=== PATIENT | female | born 1945 | race Caucasian/White ===

== ENCOUNTER 2018-11-17 09:11 | Day surgery (SDC) | payer OTHER ==
[~2018-11-17 09:11] MED LIST: ALBU3IS INH; BYSTOLIC; CALCAVITDA PO; Carvedilol12.5 MG PO; DIGO.125 PO; FURO40 PO; LEVSOD88 PO; MULVITA PO; OMEG1CAP30 PO; POTA20PAC PO; Pravachol40 MG PO; Pravastatin Sod40 MG PO; Prinivil10 MG PO; SACC250C PO; THERAPEUTIC-M1 EAC1 PO; TRAZ50 PO; VANC250 PO; VERA180ERB PO; XARELTO15 MG PO
--- NOTE | 2018-11-17 13:06 | NUR ---
PT DISCHARGED FROM RADIOLOGY POST 1230 FOLLOW UP CHEST XRAY.
--- NOTE | 2018-11-17 13:51 | NUR ---
PT VERBALIZES UNDERSTANDING OF D/C INSTRUCTIONS. REINFORCED SEVERAL TIMES BY DR ENNIS AND NOT TO RESTART PRADAXA AND ASA FOR 48 HOURS. PT VERBALIZED UNDERSTANDING.Patient States Post-Procedure ride home has been arranged.
== END 2018-11-17 22:42 | disposition home or self-care (01) ==
LOC: CT 09:11
DX: R91.1 Solitary pulmonary nodule (principal); J44.9 Chronic obstructive pulmonary disease, unspecified; I51.7 Cardiomegaly; I10 Essential (primary) hypertension; I48.0 Paroxysmal atrial fibrillation; E78.5 Hyperlipidemia, unspecified; F17.210 Nicotine dependence, cigarettes, uncomplicated; Z86.711 Personal history of pulmonary embolism; Z79.01 Long term (current) use of anticoagulants; Z79.899 Other long term (current) drug therapy; Z79.82 Long term (current) use of aspirin
CPT/HCPCS: 32405; 71045; 77012; 88305; 88341; 88342

== ENCOUNTER 2020-07-01 15:01 | Inpatient (IN) | payer OTHER, MEDICARE ==
[~2020-07-01] VITALS: Ht 152.4 cm; Wt 50.3 kg
[~2020-07-01 15:01] MED LIST changes: -DIGO.125 PO; +LANOXIN125 MCG PO
[2020-07-01 15:53] LABS: BASOPHILS ABSOLUTE AUTO 0.03 K/mm3 (0.00-0.23); BASOPHILS PERCENT AUTO 1 % (0-2); EOSINOPHILS ABSOLUTE AUTO 0.05 K/mm3 (0.00-0.68); EOSINOPHILS PERCENT AUTO 1 % (0-6); Hematocrit 36.1 % (33.0-51.0); Hemoglobin 10.3 g/dL (11.5-16.0); IMMATURE GRAN ABSOLUTE AUTO 0.01 K/mm3 (0.00-0.10); IMMATURE GRAN PERCENT AUTO 0 % (0-1); LYMPHOCYTES ABSOLUTE AUTO 0.43 K/mm3 (0.84-5.20); LYMPHOCYTES PERCENT AUTO 9 % (21-46); MONOCYTES ABSOLUTE AUTO 0.37 K/mm3 (0.16-1.47); MONOCYTES PERCENT AUTO 7 % (4-13); Mean Corpuscular HGB 26.1 pg (26.0-34.0); Mean Corpuscular HGB Conc 28.5 g/dL (31.5-36.5); Mean Corpuscular Volume 91 fL (80-100); Mean Platelet Volume 11.9 fL (9.1-12.4); NEUTROPHILS ABSOLUTE AUTO 4.16 K/mm3 (1.96-9.15); NEUTROPHILS PERCENT AUTO 82 % (41-73); NRBC ABSOLUTE 0.03 K/mm3 (0.00-0.02); NRBC Auto 0.6 /100 WBC (0.0-0.2); Platelet Count 196 K/mm3 (150-400); Red Blood Cell Count 3.95 M/mm3 (3.80-5.20); White Blood Cell Count 5.05 K/mm3 (4.00-11.30)
[2020-07-01 16:03] LABS: PCO2 Arterial 64.7 mmHg (35-45); PO2 Arterial 146 mmHg (80-100); pH Blood Arterial 7.36 (7.35-7.45)
[2020-07-01 16:12] LABS: Albumin, Blood 3.2 g/dL (3.4-5.0); Albumin/Globulin Ratio 0.9 (0.8-1.8); Bilirubin, Total 0.5 mg/dL (0.1-1.0); Bun/Creatinine Ratio 22.1 (12.0-20.0); Calcium, Blood 7.9 mg/dL (8.5-10.1); Creatinine, Blood 1.04 mg/dL (0.40-1.00); Globulin, Blood 3.5 g/dL (2.2-4.0); Total Protein, Blood 6.7 g/dL (6.4-8.2); Troponin I 0.036 ng/mL (0.000-0.040)
[2020-07-01 16:38] LABS: Influenza A, PCR NEGATIVE (NEGATIVE); Influenza B, PCR NEGATIVE (NEGATIVE); Resp Syncytial Virus, PCR NEGATIVE (NEGATIVE); SARS-Cov-2 (COVID-19) PCR, MMC NEGATIVE (NEGATIVE)
[2020-07-01 20:13] LABS: International Normalized Ratio 1.97; Prothrombin Time Results 20.3 Sec (9.7-11.5)
--- NOTE | 2020-07-01 21:30 | NUR ---
ASSUMPTION OF CARE RECEIVED REPORT FROM ERIS RN. PATIENT ARRIVED TO UNIT NEW ADMISSION FROM ED. 3 PERSON ASSIST TO BED. PATIENT A/O, VITALS STABLE. RT TO ROOM ASSESSING PATIENT. WILL REVIEW ORDERS AND TREAT PRESCRIBED.
--- NOTE | 2020-07-02 00:01 | NUR ---
REASSESSMENT NO ACUTE CHANGES FROM PREVIOUS ASSESSMENT. VITALS STABLE. ATTEMPTED TO PLACE DONALDSON CATHETER FOUR DIFFERENT RN'S ATTEMPTED UNSUCCESSFULLY. PATIENT INCONTINENT OF URINE. TROY MACHINE TOOL DRESSER AWARE OF DIFFICULT CATHETER INSERTION AND NO SUCCESS. PATIENT ATE A WHOLE SANDWICH, TAKING PO LIQUIDS WITH NO DIFFICULTIES. ORIENTED TO CALL LIGHT, PATIENT REPOSITIONED PREVIOUSLY CHARTED CURRENTLY WITH EYES CLOSED AND NO S/S OF DISTRESS.
--- NOTE | 2020-07-02 04:00 | NUR ---
REASSESSMENT NO ACUTE CHANGES FROM INITIAL ASSESSMENT. VITAL CHARTED. PATIENT DENIES NEEDS OR DISCOMFORTS. CALL LIGHT IN REACH.
[2020-07-02 05:53] LABS: BASOPHILS ABSOLUTE AUTO 0.01 K/mm3 (0.00-0.23); BASOPHILS PERCENT AUTO 0 % (0-2); EOSINOPHILS PERCENT AUTO 0 % (0-6); Hematocrit 34.9 % (33.0-51.0); Hemoglobin 9.9 g/dL (11.5-16.0); IMMATURE GRAN ABSOLUTE AUTO 0.02 K/mm3 (0.00-0.10); IMMATURE GRAN PERCENT AUTO 1 % (0-1); LYMPHOCYTES ABSOLUTE AUTO 0.16 K/mm3 (0.84-5.20); LYMPHOCYTES PERCENT AUTO 4 % (21-46); MONOCYTES ABSOLUTE AUTO 0.07 K/mm3 (0.16-1.47); MONOCYTES PERCENT AUTO 2 % (4-13); Mean Corpuscular HGB 25.8 pg (26.0-34.0); Mean Corpuscular HGB Conc 28.4 g/dL (31.5-36.5); Mean Corpuscular Volume 91 fL (80-100); Mean Platelet Volume 12.5 fL (9.1-12.4); NEUTROPHILS ABSOLUTE AUTO 3.94 K/mm3 (1.96-9.15); NEUTROPHILS PERCENT AUTO 94 % (41-73); Platelet Count 168 K/mm3 (150-400); RDW Coefficient Variation 16.2 % (11.7-14.2); RDW Standard Deviation 53.9 fL (35.1-46.3); Red Blood Cell Count 3.84 M/mm3 (3.80-5.20)
--- NOTE | 2020-07-02 05:56 | NUR ---
SHIFT SUMMARY PATIENT ADMITTED PREVIOUSLY CHARTED. 02 TITRATED THROUGH SHIFT, AT 0400 PATIENT ON 3L 03 VIA NC, BY 0415 SATS 88%, INCREASED 02 TO 4L, BY 0430 SATS 87% AND INCREASED 02 TO 5L. AT 0435 SATS CONTINUED TO DECLINE, 7L HI-FLOW VIA NC PLACED. SATS INCREASED TO 96% AND REMAIN ABOVE 95%. PATIENT INCONTINENT OF BOTH URINE AND STOOL. ATTENDS SATURATED WITH EACH CHANGE. PATIENT TURNING SELF FOR COMFORT, VERBAL CUES REMINDERS TO REPOSITION. CALL LIGHT IN REACH.
[2020-07-02 06:33] LABS: Anion Gap 5 mmol/L (6-16); Blood Urea Nitrogen 25 mg/dL (8-24); Bun/Creatinine Ratio 26.1 (12.0-20.0); CO2, Blood 34 mmol/L (21-32); Calcium, Blood 7.9 mg/dL (8.5-10.1); Chloride, Blood 106 mmol/L (98-108); Creatinine, Blood 0.96 mg/dL (0.40-1.00); Glomerular Filtration Rate >60 (60-); Glucose, Blood 122 mg/dL (70-99); Sodium, Blood 145 mmol/L (136-145)
--- NOTE | 2020-07-02 08:20 | NUR ---
ASSUMED CARE / DR JACKSON: REPORT RECEIVED FROM STEFAN Copeland RN. ASSUMED CARE OF THIS PT AT APPROX 0700. ON ASSESSMENT, THE PT IS AWAKE, A&O. SHE IS PLEASANT & COOPERATIVE W/ CARE. LS DIM IN BASES, PT ON 7L HI-FLOW NC W/ O2 SATS > 92%. STS HER "BREATHING IS BETTER" SINCE ADMISSION. MONITOR SHOWS AFLUTTER W/ HR 70-90s, BP STABLE. PT IS TOLERATING PO INTAKE WELL. SHE IS INCONTINENT OF BOWEL W/ HX IBS, ATTENDS IN PLACE. THE PT IS ALSO INCONTINENT OF BLADDER, PER REPORT, DONALDSON PLACEMENT ATTEMPTED x4 ON PRIOR SHIFT. SKIN CONDITION OVERALL FRAGILE, ECCHYMOTIC - SEE ASSESSMENT. THEATER SET PRODUCTION DESIGNER CURRENTLY AT BEDSIDE FOR EXAM. DR JACKSON HAS BEEN AT BEDSIDE THIS AM TO EVAL PT. RADIOLOGY CT TECHNOLOGIST TO BE ORDERED FOR COMMUNITY RESOURCES THE PT LIVES AT ALONE W/ NO FAMILY TO HELP HER & DEPENDS ON THE AID OF HER NEIGHBORS PRN. HE WOULD LIKE THE PT TO HAVE A DONALDSON R/T DIURESIS FOR STRICT I&O. THIS RN HAS EXPLAINED ISSUE W/ DONALDSON PLACEMENT DURING PRIOR SHIFT BUT WILL ATTEMPT DONALDSON PLACEMENT IF PT WILL ALLOW. WILL CONTINUE TO MONITOR & UPDATE NEEDED.
[2020-07-02 09:51] LABS: Source, Urine Catheter
[2020-07-02 09:56] LABS: Appearance, Urine Hazy (Clear); Bilirubin, Urine Neg (Neg); Blood, Urine 4+ (Neg); Color, Urine Yellow (P-Yellow); Glucose Qualitative, Urine Neg (Neg); Ketones, Urine Neg (Neg); Leukocyte Esterase, Urine 3+ (Neg); Nitrite, Urine Pos (Neg); Protein, Urine Neg (Neg); Urobilinogen, Urine NORM (Normal)
--- NOTE | 2020-07-02 10:10 | NUR ---
Spoke with Dr Green and discussed case. Pt appears to have improved since being in the ED. Dr Green reports Pt may benefit from community resources. Spoke with Bedside RN Eva and discussed case. Pt resting in bed upon arrival. Pt denies pain, nausea, and dyspnea at time of visit. Pt does report mild anxiety due to concerns about her cats. She reports plan to call neighboer to check on cats. Pt reports no family or friends for support and does not drive. She reports neighbors will assist with transportation on occasion. Kept visit brief so Pt can make phone calls to neighbors. Pt agreeable for continued Palliative Care visits. Placed Social Service referral for community resources and spoke with Commercial Horticulture Instructor Lana. Plan: F/U for supportive visits and advanced care planning.
[2020-07-02 10:45] LABS: Bacteria Many /hpf; Red Blood Cells, Urine 50-100 /hpf (0-2); Squamous Epithelial Cells Rare /hpf (Few); White Blood Cells, Urine 50-100 /hpf (0-5)
--- NOTE | 2020-07-02 11:42 | NUR ---
echocardiogram complete
--- NOTE | 2020-07-02 14:49 | NUR ---
DR YEUNG: PROVIDER HAS BEEN AT BEDSIDE TO EVAL PT THIS AFTERNOON. ABX ORDERED FOR PT's UTI NOTED ON UA SENT W/ DONALDSON PLACEMENT THIS AM. NO OTHER CHANGES AT THIS TIME.
--- NOTE | 2020-07-02 18:05 | NUR ---
SHIFT SUMMARY: NO ACUTE CHANGES SINCE PRIOR UPDATES. PT REMAINS A&O, PLEASANT & COOPERATIVE W/ CARE. SHE IS CURRENTLY ON 2L NC W/ O2 SATS > 92% ON AVG, DESATS TO 88% W/ EXERTION. MONITOR SHOWS AFLUTTER W/ HR 70-90s, BP STABLE. PT HAS NO GI COMPLAINTS & HAS TOLERATED PO INTAKE WELL THIS SHIFT. DONALDSON PATENT/ DRAINING YELLOW URINE W/ MOD AMNTS OF SEDIMENT PRESENT. SKIN CONDITION OVERALL UNCHANGED, Q2H REPOSITIONING TO MAINTAIN SKIN INTEGRITY. WILL CONTINUE TO MONITOR & REPORT OFF TO ONCOMING RN.
--- NOTE | 2020-07-02 19:23 | NUR ---
TRANSFER TO MEDICAL FLOOR: REPORT HAS BEEN GIVEN TO RN TO ASSUME CARE. PT WILL BE TRANSFERRED TO ROOM 325 VIA BED. CHART & ALL BELONGINGS WILL BE TAKEN UP W/ PT.
--- NOTE | 2020-07-03 04:20 | NUR ---
SHIFT SUMMARY ALERT, ABLE TO MAKE NEEDS KNOWN. COOPERATIVE WITH CARE. ANSWERS QUESTIONS APPROPRIATELY. NO C/O PAIN/DISCOMFORT. APPEARED TO REST MUCH OF THE NIGHT. REMAINS ON HEPARIN IV WITHOUT COMPLICATION. DONALDSON SECURED AND DRAINING TO GRAVITY. FREELY MOVING IN BED. HAS REMAINED ON 5L VIA HI-FLOW NC T/O NIGHT; ATTEMPTED TO WEAN, HOWEVER WOULD DESATURATE AFTER TITRATION. TELE RUNNING AFLUTTER IN THE 80s. BED REMAINS IN LOWEST POSITION; ALARM ON. CALL LIGHT AND BELONGINGS WITHIN REACH. CONTINUE WITH CURRENT PLAN OF CARE. REPORT TO ONCOMING RN.
[2020-07-03 05:27] LABS: BASOPHILS ABSOLUTE AUTO 0.01 K/mm3 (0.00-0.23); BASOPHILS PERCENT AUTO 0 % (0-2); EOSINOPHILS PERCENT AUTO 0 % (0-6); Hematocrit 31.4 % (33.0-51.0); Hemoglobin 9.2 g/dL (11.5-16.0); IMMATURE GRAN ABSOLUTE AUTO 0.11 K/mm3 (0.00-0.10); IMMATURE GRAN PERCENT AUTO 1 % (0-1); LYMPHOCYTES ABSOLUTE AUTO 0.21 K/mm3 (0.84-5.20); LYMPHOCYTES PERCENT AUTO 2 % (21-46); MONOCYTES ABSOLUTE AUTO 0.37 K/mm3 (0.16-1.47); MONOCYTES PERCENT AUTO 3 % (4-13); Mean Corpuscular HGB Conc 29.3 g/dL (31.5-36.5); Mean Corpuscular Volume 89 fL (80-100); Mean Platelet Volume 12.4 fL (9.1-12.4); NEUTROPHILS ABSOLUTE AUTO 11.62 K/mm3 (1.96-9.15); NEUTROPHILS PERCENT AUTO 94 % (41-73); Platelet Count 181 K/mm3 (150-400); RDW Coefficient Variation 16.3 % (11.7-14.2); RDW Standard Deviation 53.1 fL (35.1-46.3); Red Blood Cell Count 3.54 M/mm3 (3.80-5.20); White Blood Cell Count 12.32 K/mm3 (4.00-11.30)
[2020-07-03 06:09] LABS: Anion Gap 4 mmol/L (6-16); Blood Urea Nitrogen 33 mg/dL (8-24); Bun/Creatinine Ratio 31.4 (12.0-20.0); CO2, Blood 36 mmol/L (21-32); Calcium, Blood 8.3 mg/dL (8.5-10.1); Chloride, Blood 102 mmol/L (98-108); Creatinine, Blood 1.05 mg/dL (0.40-1.00); Digoxin (Lanoxin) 0.22 ug/mL (0.80-2.00); Glomerular Filtration Rate 54 (60-); Glucose, Blood 122 mg/dL (70-99); Potassium, Blood 4.3 mmol/L (3.5-5.5); Sodium, Blood 142 mmol/L (136-145)
--- NOTE | 2020-07-03 17:29 | NUR ---
SHIFT SUMMARY PT A&OX3, DOES NOT KNOW DATE. SHE DOES NOT USE THE CALL LIGHT TO MAKE NEEDS KNOWN. UNABLE TO NOTIFY STAFF IF SHE HAD A BM. PT HAS CONFUSION THROUGH OUT SHIFT, USUALLY NOT KNOWNING WHY SHE HAS IV HOOKED UP TO HER, WHAT THE O2 MONITOR AND TELE IS FOR. PT ALSO THOUGHT THE PHONE WAS THE TV REMOTE. SHE WORKED WITH PHYSICAL THERAPHY TODAY AND IS A 1 PERSON SBA TO CHAIR. PT HAS BEEN IN CHAIR FOR THE LAST HOUR AND HAS SET CHAIR ALARM OFF MULTIPLE TIMES, HIGH FALL RISK DUE TO DONALDSON, IV, O2 MONITOR AND NASAL CANAL. PT DENIES P/N/V DURING SHIFT. SHE HAD A FRIEND VIST, HER FRIEND VOICED CONCERNS ABOUT HER BEING MORE FORGETFULL THAN USUAL. PT CURENTLY IN ROOM, IN CHAIR EATING DINNER. CALL LIGHT W/IN REACH.
--- NOTE | 2020-07-04 04:02 | NUR ---
SHIFT SUMMARY ALERT, ABLE TO MAKE NEEDS KNOWN. NOTABLY FORGETFUL AT TIMES. RE-DIRECTS EASILY. UPSET AT BEGINNING OF SHIFT; THINKING SHE MAY HAVE LOST SOME MONEY/DEBIT CARD. REMEMBERED THAT SHE GAVE HER FRIEND WHOM VISTED DURING THE DAY YESTERDAY HER DEBIT CARD TO HAVE HER CAT PUT TO SLEEP TODAY. REMINDED HER THAT IT WAS LATE AND THAT HER FRIEND WAS LIKELY SLEEPING OR GETTING READY TO GO TO SLEEP AND THAT SHE WOULD NEED TO TRY AND CALL HER IN THE MORNING; AGREEABLE. EXITED THE BED DURING THE NIGHT A COUPLE OF TIMES GETTING TANGLED IN LINES. REMAINS ON HEPARIN IV. TELE RUNNING AFIB IN THE 80s. APPEARED TO REST OFF AND ON. DONALDSON INTACT, SECURED AND DRAINING TO GRAVITY. VSS/AFEBRILE. BED REMAINS IN LOWEST POSITION; ALARM ON. CALL LIGHT AND BELONGINGS WITHIN REACH. CONTINUE WITH CURRENT PLAN OF CARE. REPORT TO ONCLEO RN.
[2020-07-04 07:46] LABS: BASOPHILS ABSOLUTE AUTO 0.01 K/mm3 (0.00-0.23); BASOPHILS PERCENT AUTO 0 % (0-2); EOSINOPHILS ABSOLUTE AUTO 0.01 K/mm3 (0.00-0.68); EOSINOPHILS PERCENT AUTO 0 % (0-6); Hemoglobin 9.2 g/dL (11.5-16.0); IMMATURE GRAN ABSOLUTE AUTO 0.06 K/mm3 (0.00-0.10); IMMATURE GRAN PERCENT AUTO 1 % (0-1); LYMPHOCYTES ABSOLUTE AUTO 0.65 K/mm3 (0.84-5.20); LYMPHOCYTES PERCENT AUTO 5 % (21-46); MONOCYTES ABSOLUTE AUTO 0.73 K/mm3 (0.16-1.47); MONOCYTES PERCENT AUTO 6 % (4-13); Mean Corpuscular HGB 26.3 pg (26.0-34.0); Mean Corpuscular HGB Conc 28.8 g/dL (31.5-36.5); Mean Corpuscular Volume 91 fL (80-100); NEUTROPHILS PERCENT AUTO 88 % (41-73); Platelet Count 194 K/mm3 (150-400); RDW Coefficient Variation 16.4 % (11.7-14.2); RDW Standard Deviation 54.5 fL (35.1-46.3); White Blood Cell Count 11.96 K/mm3 (4.00-11.30)
[2020-07-04 07:55] LABS: Creatinine, Blood 1.18 mg/dL (0.40-1.00); Potassium, Blood 4.6 mmol/L (3.5-5.5)
[2020-07-04 13:32] LABS: Lactate Dehydrogenase (Ld),Bld 243 U/L (100-240)
[2020-07-04 13:42] LABS: Alanine Aminotransfer (ALT/SGP 23 U/L (12-78); Albumin, Blood 3.2 g/dL (3.4-5.0); Albumin/Globulin Ratio 0.9 (0.8-1.8); Alk Phos 82 U/L (50-136); Aspartate Aminotrans (AST/SGOT 27 U/L (12-37); Bilirubin, Direct <0.1 mg/dL (0.0-0.3); Bilirubin, Indirect Unable to Calculate mg/dL (0.1-0.7); Bilirubin, Total 0.4 mg/dL (0.1-1.0); Globulin, Blood 3.7 g/dL (2.2-4.0); Total Protein, Blood 6.9 g/dL (6.4-8.2)
--- NOTE | 2020-07-04 17:54 | NUR ---
Shift Summary A/Ox 2 to self and hospital, often forgetful. 2-3L O2 with sats between 88-95. Heparin stopped at [address] Crowley's order for a thoracentesis at 1730 tonight. Heparin will need to be resumed an hour after procedure and pharmacy needs to be notified. Patient edematous in BLE 4+. Up x SBA d/t lines/cords. Continuous biox on. Denies pain, nausea, vomiting, diarrhea, shortness of breath. Up in chair for all meals. Bed and chair alarm on for safety. Does not use call light appropriately. WCTM and report to oncoming RN.
[2020-07-04 18:28] LABS: Automated BF WBC Count 0.251 K/mm3 (0-999); Body Fluid WBC Count 251 /mm3 (0-999)
[2020-07-04 18:43] LABS: Lactate Dehydrogenase, Body Fl 79 U/L
[2020-07-04 18:53] LABS: RBC Count, Body Fluid 160 /mm3 (0-0)
[2020-07-04 19:24] LABS: Appearance, Body Fluid Clear (Clear); Color, Body Fluid L Yellow (None-Yellow); Total Cell Count, Body Fluid 100
--- NOTE | 2020-07-05 04:13 | NUR ---
SHIFT SUMMARY VERY CONFUSED T/O SHIFT, NOT EASILY REDIRECTED, PULLED OFF NC REPEATEDLY, SET OFF BED ALARM ATTEMPTING TO VOID MANY X'S (HAS A DONALDSON), CALLING OUT INTO HALLWAY "LUBNA WHERE ARE YOU", FINALLY SLEEPING AT 0400, BED ALARM ACTIVE, CALL LIGHT IN REACH, WILL CONT TO MONITOR UNTIL REPORT GIVEN TO DAY RN.
[2020-07-05 10:45] LABS: BASOPHILS ABSOLUTE AUTO 0.01 K/mm3 (0.00-0.23); BASOPHILS PERCENT AUTO 0 % (0-2); EOSINOPHILS ABSOLUTE AUTO 0.05 K/mm3 (0.00-0.68); EOSINOPHILS PERCENT AUTO 1 % (0-6); Hematocrit 32.3 % (33.0-51.0); Hemoglobin 9.5 g/dL (11.5-16.0); IMMATURE GRAN ABSOLUTE AUTO 0.04 K/mm3 (0.00-0.10); IMMATURE GRAN PERCENT AUTO 1 % (0-1); LYMPHOCYTES ABSOLUTE AUTO 0.55 K/mm3 (0.84-5.20); LYMPHOCYTES PERCENT AUTO 6 % (21-46); MONOCYTES ABSOLUTE AUTO 0.69 K/mm3 (0.16-1.47); MONOCYTES PERCENT AUTO 8 % (4-13); Mean Corpuscular HGB 26.3 pg (26.0-34.0); Mean Corpuscular HGB Conc 29.4 g/dL (31.5-36.5); Mean Corpuscular Volume 90 fL (80-100); Mean Platelet Volume 11.8 fL (9.1-12.4); NEUTROPHILS ABSOLUTE AUTO 7.37 K/mm3 (1.96-9.15); NEUTROPHILS PERCENT AUTO 85 % (41-73); Platelet Count 184 K/mm3 (150-400); RDW Coefficient Variation 16.4 % (11.7-14.2); RDW Standard Deviation 53.7 fL (35.1-46.3); Red Blood Cell Count 3.61 M/mm3 (3.80-5.20); White Blood Cell Count 8.71 K/mm3 (4.00-11.30)
[2020-07-05 11:05] LABS: Anion Gap 1 mmol/L (6-16); Blood Urea Nitrogen 37 mg/dL (8-24); Bun/Creatinine Ratio 39.2 (12.0-20.0); CO2, Blood 42 mmol/L (21-32); Calcium, Blood 8.6 mg/dL (8.5-10.1); Chloride, Blood 96 mmol/L (98-108); Creatinine, Blood 0.94 mg/dL (0.40-1.00); Glomerular Filtration Rate >60 (60-); Glucose, Blood 106 mg/dL (70-99); Potassium, Blood 4.2 mmol/L (3.5-5.5); Sodium, Blood 139 mmol/L (136-145)
--- NOTE | 2020-07-05 17:07 | NUR ---
Shift Summary A/O x 2. Pleasant and cooperative with care. Tele: Afib 70's. Patient had chest physiotherapy x 2 this shift. Will need chest physiotherapy q6h as patient tolerates per Dr. Dacosta. Heparin continues to infuse @ 17.1 mL/hr (14.5 u/kg/hr). Nonproductive cough noted. Encourage use of flutter valve therapy. No acute changes, WCTM.
--- NOTE | 2020-07-06 05:24 | NUR ---
SHIFT SUMMARY PT FELL ASLEEP EARLY AND SLEPT WELL THIS SHIFT, REFUSED TO WAKE FOR PM MEDS, THEN WOKE BRIEFLY @ MIDNIGHT SETTING OFF BED ALARM TANGLED IN LINES AND AGREED TO TAKE MEDS AND ALLOW STAFF TO ASSIST W/POSITIONING, QUICKLY FELL BACK TO SLEEP AND SLEPT T/O THE NIGHT, SLEEPING AT THIS TIME, CALL LIGHT IN REACH, WILL CONT TO MONITOR UNTIL REPORT GIVEN TO DAY RN.
[2020-07-06 06:04] LABS: BASOPHILS PERCENT AUTO 0 % (0-2); EOSINOPHILS PERCENT AUTO 0 % (0-6); Hematocrit 30.9 % (33.0-51.0); Hemoglobin 9.2 g/dL (11.5-16.0); IMMATURE GRAN ABSOLUTE AUTO 0.03 K/mm3 (0.00-0.10); IMMATURE GRAN PERCENT AUTO 1 % (0-1); LYMPHOCYTES ABSOLUTE AUTO 0.51 K/mm3 (0.84-5.20); LYMPHOCYTES PERCENT AUTO 8 % (21-46); MONOCYTES ABSOLUTE AUTO 0.43 K/mm3 (0.16-1.47); MONOCYTES PERCENT AUTO 7 % (4-13); Mean Corpuscular HGB 26.4 pg (26.0-34.0); Mean Corpuscular HGB Conc 29.8 g/dL (31.5-36.5); Mean Corpuscular Volume 89 fL (80-100); Mean Platelet Volume 11.9 fL (9.1-12.4); NEUTROPHILS ABSOLUTE AUTO 5.56 K/mm3 (1.96-9.15); NEUTROPHILS PERCENT AUTO 85 % (41-73); Platelet Count 181 K/mm3 (150-400); RDW Coefficient Variation 16.4 % (11.7-14.2); Red Blood Cell Count 3.49 M/mm3 (3.80-5.20); White Blood Cell Count 6.53 K/mm3 (4.00-11.30)
[2020-07-06 06:26] LABS: Anion Gap 1 mmol/L (6-16); Blood Urea Nitrogen 32 mg/dL (8-24); Bun/Creatinine Ratio 38.1 (12.0-20.0); CO2, Blood 42 mmol/L (21-32); Calcium, Blood 8.6 mg/dL (8.5-10.1); Chloride, Blood 97 mmol/L (98-108); Creatinine, Blood 0.84 mg/dL (0.40-1.00); Glomerular Filtration Rate >60 (60-); Glucose, Blood 86 mg/dL (70-99); Potassium, Blood 4.6 mmol/L (3.5-5.5); Sodium, Blood 140 mmol/L (136-145)
[2020-07-06 10:35] LABS: Influenza A, PCR NEGATIVE (NEGATIVE); Influenza B, PCR NEGATIVE (NEGATIVE); Resp Syncytial Virus, PCR NEGATIVE (NEGATIVE); SARS-Cov-2 (COVID-19) PCR, MMC NEGATIVE (NEGATIVE)
--- NOTE | 2020-07-06 11:53 | NUR ---
07/06/20 1153 Saji Smiley History, Chart, Medications and Allergies reviewed before start of procedure.MONITOR INTACT WITH CONTINUOUS PULSE OXIMETRY AND INTERMITTENT BP.3-LEAD EKG REVIEWED WITH PHYSICIAN PRIOR TO START OF PROCEDURE.O2 VIA N/C INTACT THROUGHOUT SEDATION/PROCEDURE.
--- NOTE | 2020-07-06 12:30 | NUR ---
History, Chart, Medications and Allergies reviewed before start of procedure. Pre-Op teaching done. Pt verbalizes understanding.
--- NOTE | 2020-07-06 12:42 | NUR ---
Per Dr. Dacosta, no further planned procedures. Need to start discontinuation of heparin and restart oral anticoags. Also, would need safe discharge planning. Dr. Melo notified.
--- NOTE | 2020-07-06 15:58 | NUR ---
IV Heparin d/c and Xarelto given.
--- NOTE | 2020-07-06 18:33 | NUR ---
Shift Summary Remains a/o to self and hospital. Bronchoscopy completed today. Heparin has been d/c and oral anticoagulants started. Home O2 eval ordered and received T.O. confirming rest and exercise to be completed upon discharge. Placed RT communication note and RT informed. Tele: Afib 90. Morning meds were given later d/t NPO for bronch procedure. Patient had 2 bowel movements today on the bedside commode. Does not call appropriately. No agitation noted this shift. Cooperative with care. Mtz intact and draining clear yellow urine to gravity. T.O. above is from Dr. Melo. Call light nearby, bed alarm on, bed in lowest position. TM.
--- NOTE | 2020-07-07 04:29 | NUR ---
SHIFT SUMMARY NO ACUTE CHANGES THIS SHIFT, NO C/O ANY KIND, SLEPT T/O THE NIGHT REMOVING NC SEVERAL TIMES BUT QUICKLY RETURNING TO SLEEP AFTER NC REPLACED, SELF REPOS FREQUENTLY, CALL LIGHT IN REACH, BED ALARM ACTIVE, WILL CONT TO MONITOR UNTIL REPORT GIVEN TO DAY RN.
[2020-07-07] MEDS ORDERED: VISBIOME 112.51 EACH PO (17:08)
[2020-07-07] MEDS ORDERED: DABI150C PO (17:09)
[2020-07-07] MEDS ORDERED: CEFP200 PO (17:09)
--- NOTE | 2020-07-07 17:41 | NUR ---
SHIFT SUMMARY PT AWAKE AT START OF SHIFT, WATCHING TV. PLEASANT AND CO-OP, BUT FORGETFUL. ADMITTED FOR RESP FAILURE WITH HYPOXIA. PT REPORTS FEELING BETTER; BIOX AT 95 TO 100% ON 2L NC NOW, BUT PT DOES DESAT WITH ACTIVITY ON RA. PT IS UNAWARE AND DOES NOT KEEP O2 ON MOST OF THE TIME. PT NORMALLY WEARS 2L O2 AT HS ONLY. PT RECEIVING CPT THIS AM AND AFTERNOON. INCONTINENT OF BOWELS TODAY. A-FIB ON TELE, PER MX TECH. PER SHIFT REPORT, PT PREVIOUSLY ON HEPARIN DRIP, BUT RESTARTED ON XARELTO. DR JACKSON AND DR MILLER IN TO SEE PT TODAY. D/C ORDERS PLACED THIS EVENING. PT ASSISTED WITH GETTING DRESSED. IV'S D/C'D WNL'S. PT'S FRIEND/NEIGHBOR, LUBNA, NOTIFIED OF D/C AND ON HER WAY TO PICK PT UP TO TAKE HER HOME. PT WAITING IN W/C AT THIS TIME, ANXIOUS TO LEAVE. D/C INSTRUCTIONS DISCUSSED WITH PT. MEDS FAXED TO [facility] PER PT. .
--- NOTE | 2020-07-07 18:12 | NUR ---
Met with pt today, she is alert and pleasantly confused. She knows her name, but is unsure of what town she lives in, or where she is now. She talked about the TV show she was watching, but didn't wish to delve any deeper into conversation. She does deny pain or anxiety at this visit. Will attempt again at a later date if needed.
== END 2020-07-07 18:12 | disposition home or self-care (01) | DRG 291 ==
LOC: ER 15:01 → ICUE 15:02 → PCU 15:02 → ICUE 19:24 → MEDS 19:24 → ICUE 21:21 → MEDS 07-02 19:46
PROVIDERS: Emergency Medicine; Family Medicine; Internal Medicine Critical Care Medicine; Internal Medicine Pulmonary Disease; Nurse Practitioner Acute Care; Physician Assistant; ADMIT Internal Medicine
PROC: 0W993ZZ Drainage of Right Pleural Cavity, Percutaneous Approach (ICD-10-PCS; principal; 2020-07-01)
PROC: 0B978ZZ Drainage of Left Main Bronchus, Via Natural or Artificial Opening Endoscopic (ICD-10-PCS; 2020-07-06)
PROC: 0B938ZZ Drainage of Right Main Bronchus, Via Natural or Artificial Opening Endoscopic (ICD-10-PCS; 2020-07-06)
PROC: 0BD78ZX Extraction of Left Main Bronchus, Via Natural or Artificial Opening Endoscopic, Diagnostic (ICD-10-PCS; 2020-07-06)
PROC: 0BD38ZX Extraction of Right Main Bronchus, Via Natural or Artificial Opening Endoscopic, Diagnostic (ICD-10-PCS; 2020-07-06)
DX: I11.0 Hypertensive heart disease with heart failure (principal); J96.21 Acute and chronic respiratory failure with hypoxia; J96.22 Acute and chronic respiratory failure with hypercapnia; J18.9 Pneumonia, unspecified organism; I31.3 Pericardial effusion (noninflammatory); R64 Cachexia; E87.2 Acidosis; J91.0 Malignant pleural effusion; T17.590A Other foreign object in bronchus causing asphyxiation, initial encounter; I48.21 Permanent atrial fibrillation; J98.11 Atelectasis; N39.0 Urinary tract infection, site not specified; C34.32 Malignant neoplasm of lower lobe, left bronchus or lung; F17.210 Nicotine dependence, cigarettes, uncomplicated; K58.9 Irritable bowel syndrome, unspecified; E03.9 Hypothyroidism, unspecified; E78.5 Hyperlipidemia, unspecified; F03.90 Unspecified dementia, unspecified severity, without behavioral disturbance, psychotic disturbance, mood disturbance, and anxiety; J43.2 Centrilobular emphysema; Z20.822 Contact with and (suspected) exposure to COVID-19; I27.20 Pulmonary hypertension, unspecified; R45.1 Restlessness and agitation; E78.00 Pure hypercholesterolemia, unspecified; Z60.2 Problems related to living alone; I50.9 Heart failure, unspecified; Z98.890 Other specified postprocedural states; Z79.01 Long term (current) use of anticoagulants; Z86.711 Personal history of pulmonary embolism; Z68.24 Body mass index [BMI] 24.0-24.9, adult; Z79.899 Other long term (current) drug therapy; Z92.3 Personal history of irradiation; Z71.6 Tobacco abuse counseling; Z91.19 Patient's noncompliance with other medical treatment and regimen; Z91.14 Patient's other noncompliance with medication regimen; Z93.3 Colostomy status
CPT/HCPCS: 0241U; 32555; 36415; 36600; 51702; 71045; 71046; 71260; 80048; 80053; 80076; 80162; 81001; 82803; 83615; 83735; 83880; 84145; 84157; 84484; 85025; 85610; 85730; 87015; 87070; 87077; 87086; 87116; 87186; 87205; 87206; 88108; 88305; 89051; 93005; 93010; 93306; 94640; 94644; 94667; 94668; 94761; 94762; 96374-59; 97110; 97112; 97116; 97129; 97162; 97165; 97535; 99285-25; A9270; J0171; J0696; J1644; J1940; J2001; J2250; J2930; J3010; J7050; J7120; J7512; Q9967

== ENCOUNTER → 2020-08-01 | Outpatient (CLI) | payer OTHER ==
[~2020-08-01] MED LIST changes: +CEFP200 PO; +DABI150C PO; +VISBIOME 112.51 EACH PO
[2020-08-06 11:05] LABS: Free Thyroxine 1.01 ng/dL (0.70-1.60); Thyroid Stimulating Hormone 4.92 uIU/mL (0.360-4.800)
[2020-08-06 18:09] LABS: T PALLIDUM ANTIBODIES Non Reactive (Non Reactive)
== END | disposition home or self-care (01) ==
LOC: LAB SHORT 17:21
PROVIDERS: Family Medicine
DX: R30.9 Painful micturition, unspecified (principal); F44.89 Other dissociative and conversion disorders; I10 Essential (primary) hypertension
CPT/HCPCS: 84439; 84443; 86592; 86780; 87086

== ENCOUNTER → 2020-08-11 | Outpatient (CLI) | payer OTHER ==
[2020-08-11 18:12] LABS: BASOPHILS ABSOLUTE AUTO 0.03 K/mm3 (0.00-0.23); BASOPHILS PERCENT AUTO 1 % (0-2); EOSINOPHILS ABSOLUTE AUTO 0.08 K/mm3 (0.00-0.68); EOSINOPHILS PERCENT AUTO 1 % (0-6); Hematocrit 31.1 % (33.0-51.0); Hemoglobin 8.9 g/dL (11.5-16.0); IMMATURE GRAN ABSOLUTE AUTO 0.02 K/mm3 (0.00-0.10); IMMATURE GRAN PERCENT AUTO 0 % (0-1); LYMPHOCYTES ABSOLUTE AUTO 0.81 K/mm3 (0.84-5.20); LYMPHOCYTES PERCENT AUTO 12 % (21-46); MONOCYTES ABSOLUTE AUTO 0.53 K/mm3 (0.16-1.47); MONOCYTES PERCENT AUTO 8 % (4-13); Mean Corpuscular HGB 24.1 pg (26.0-34.0); Mean Corpuscular HGB Conc 28.6 g/dL (31.5-36.5); Mean Corpuscular Volume 84 fL (80-100); NEUTROPHILS ABSOLUTE AUTO 5.18 K/mm3 (1.96-9.15); NEUTROPHILS PERCENT AUTO 78 % (41-73); Platelet Count 337 K/mm3 (150-400); RDW Coefficient Variation 17.1 % (11.7-14.2); RDW Standard Deviation 52.1 fL (35.1-46.3); White Blood Cell Count 6.65 K/mm3 (4.00-11.30)
== END | disposition home or self-care (01) ==
LOC: LAB 16:49 → LAB HH 16:49
PROVIDERS: Family Medicine
DX: R41.89 Other symptoms and signs involving cognitive functions and awareness (principal); Z79.899 Other long term (current) drug therapy
CPT/HCPCS: 82607; 82746; 85025